=== PATIENT | female | born 1985 | race Caucasian/White ===

== ENCOUNTER 2019-05-29 00:11 | Emergency (ER) | payer OTHER, MEDICAID ==
[~2019-05-29] VITALS: Ht 167.6 cm; Wt 67.1 kg
[2019-05-29] MEDS ORDERED: PNV 29-1 TABLE1 EACH PO (00:36)
[2019-05-29] MEDS ORDERED: CLARITIN10 M3 PO (00:36)
[2019-05-29 00:46] LABS: HEMATOCRIT 36.8 % (37.0-47.0); HEMOGLOBIN 12.7 gm/dL (12.0-15.0); MCH 32.5 pg (26.0-34.0); MCHC 34.6 g/dL (28.0-37.0); MPV 10.3 fl. (7.2-11.1); NUCLEATED RBCS 0 /100WBC; PLATELET COUNT* 152 thou/uL (150-400); RBC 3.91 mil/uL (4.20-5.00); RDW-CV 14.2 % (10.5-14.5); WBC 20.6 thou/uL (4.0-11.0)
[2019-05-29 00:54] LABS: CALCIUM 9.3 mg/dL (8.5-10.1); CREATININE 0.6 mg/dL (0.6-1.3); POTASSIUM 3.5 mmol/L (3.5-5.1)
[2019-05-29 00:54] LABS: URINE BILIRUBIN NEGATIVE (Negative); URINE BLOOD 2+ (Negative); URINE CLARITY CLEAR; URINE COLOR YELLOW; URINE GLUCOSE-RANDOM NEGATIVE (Negative); URINE KETONES NEGATIVE (Negative); URINE LEUKOCYTES-REFLEX 1+ (Negative); URINE NITRITE-REFLEX NEGATIVE (Negative); URINE PROTEIN NEGATIVE (Negative); URINE UROBILINOGEN 0.2 E.U./dl (0.2-1.0)
[2019-05-29 00:59] LABS: ALBUMIN 3.2 g/dL (3.4-5.0); TOTAL BILIRUBIN 0.4 mg/dL (<0.1-1.0); TOTAL PROTEIN 7.3 g/dL (6.4-8.2)
[2019-05-29 01:17] LABS: CASTS None Seen /LPF (None Seen); CRYSTALS None Seen /LPF (None Seen); MUCUS 4-6 Moderate strn/LPF (None Seen); SQUAMOUS 0-3 Few /LPF (0-3); URINE RBC >20 Many /HPF (0-2); URINE WBC-REFLEX 6-15 Few /HPF (0-5)
[2019-05-29 01:34] LABS: ABSOLUTE EOSINOPHILS 0.2 thou/uL (0.0-0.7); ABSOLUTE LYMPHOCYTES 3.7 thou/uL (0.8-5.3); ABSOLUTE MONOCYTES 0.4 thou/uL (0.0-1.2); ABSOLUTE NEUTROPHILS 16.3 thou/uL (1.6-8.1); CLUMPED PLTS OCCASIONAL; PLATELET ESTIMATE ADEQUATE; TOXIC GRANULATION 1+
[2019-05-29] MEDS ORDERED: HYDROCODON-ACE1 EAC8 PO (04:20)
[2019-05-29] MEDS ORDERED: KEFLEX500 M1 PO (04:20)
[2019-05-29] MEDS ORDERED: ZOFRAN ODT4 MG PO (04:20)
[2019-05-29 06:13] VITALS: BP 141/80
--- NOTE | 2019-06-03 11:09 | PATH ---
[address] [address] PATHOLOGY RPT PROCEDURE Name: MATIASABBY Joel Room: [facility] Ovidio#: [id number] Admission: 05/29/19 Date of : 89 Discharge: 05/29/19 Report #: [id number] Path Case #: [id number] [facility] Accession Number: [id number] . 01 Material submitted: . product of conception - PRODUCTS OF CONCEPTION . 01 Clinical history: . Spontaneous vaginal delivery of non-viable fetus and placenta . 02 Diagnosis: Products of conception: - Immature placenta (77 grams), with 15.5 cm long, eccentrically-attached, stricture-free three vessel umbilical cord showing a false knot and with severe acute chorioamnionitis. - Macerated immature male fetus with gastroschisis (protrusion of intestines through abdominal wall) and grossly abnormal-appearing skull. (YANETH:andreea; 06/02/2019) S 06/03/2019 1036 Local . 02 Electronically signed: . Stephon Brooks MD, Pathologist NPI- [id number] . 01 Gross description: . The specimen is received in saline, and subsequently placed in formalin, labeled "Abby Ramires, products of conception". Received is an immature placenta with attached membranes and umbilical cord, which is attached to a fetus. The trimmed placental weight is 77 g and the disc measures 10.0 x 8.5 x 2.4 cm. The membranes are pale fang and translucent to opaque in appearance, and the site of membrane rupture is 1.3 cm from the closest placental margin. The membranes display a slightly edematous appearance. The surface is intact. The trivascular umbilical cord measures 15.5 cm in length by up to 1.5 cm in diameter and inserts eccentrically, 1.8 cm from the closest margin. The umbilical cord is pale fang to-tillman in appearance with minimal helical twisting and a single false knot. The maternal surface is pale fang and shaggy in appearance with a slight amount of overlying blood coagulum. Sectioning reveals pale fang to pink-fang cut surfaces with no grossly distinct nodules or lesions. . Also received within the specimen container is a 67 g fetus with the following measurements: . Foot length: 1.8 cm Loma-rump: 11.7 cm Loma-heel: 17.3 cm Head circumference: 9.[place] [address] PATHOLOGY RPT PROCEDURE Name: ABBY RAMIRES Room: [facility] Nolan#: [id number] Admission: 05/29/19 Date of : 89 Discharge: 05/29/19 Report #: [id number] Path Case #: [id number] Eye distance: 0.9 cm. . The bones of the skull are misaligned with a depression on the superior aspect measuring 0.8 x 0.5 cm, which goes to a depth of 0.5 cm. On the back of the skull, there is also another indentation present. The eyes are slightly wide set. The ears are symmetrical and low set. The nose is wide in appearance. The mouth is opened and the palate is intact. Both hands display five fingers and both feet display five toes. There is a moderate amount of small intestine on the outside of the lower right abdomen. The sex is determined to be male. The specimen is submitted representatively as follows: . A1 membrane roll and represent sections of edematous membrane A2 umbilical cord, to include false knot A3-A5 full-thickness cassette cross-sections. . Gross photographs are taken. (CAA; 05/30/2019) QAC/QAC 05/30/2019 1400 Local . 02 Pathologist provided ICD-10: O41.1290, Q79.3 . 02 CPT . 317846 Specimen Comment: A courtesy copy of this report has been sent to [phone], [phone] Specimen Comment: [id number] Specimen Comment: Report sent to / DR HUSAIN Performed at: [address], [place], [place] [id number] MD Anatoliy Marrero MD Phone: [phone] Performed at: [facility] [address], [place], [place] [id number] MD Stephon Brooks MD Phone: [phone]
== END 2019-05-29 05:00 | disposition home or self-care (01) ==
LOC: M.ERS 00:11
PROVIDERS: Emergency Medicine
DX: O03.9 Complete or unspecified spontaneous abortion without complication (principal); J45.909 Unspecified asthma, uncomplicated